=== PATIENT | male | born 1955 | race Caucasian/White ===

== ENCOUNTER → 2024-10-25 10:16 | Outpatient (REF) | payer OTHER, SELFPAY | LOC: RAD 10:16 | PROVIDERS: ATTENDING PHYSICIAN Physician Assistant Medical | DX: R53.83 Other fatigue (principal) | CPT/HCPCS: 71046 ==

== ENCOUNTER 2025-04-22 17:11 | Emergency (ER) | payer OTHER, SELFPAY ==
[2025-04-22 17:22] VITALS: BP 138/107
[2025-04-22 17:50] LABS: % Basophils 0.7 % (0-2); % Eosinophils 3.4 % (0-6); % Immature Granulocytes 0.3 % (0-0.5); % Lymphocytes 31.9 % (20.5-51.1); % Monocytes 10.5 % (1.7-9.3); % Neutrophils 53.2 % (42.2-75.2); Absolute Basophils 0.1 10^3/uL (0-0.2); Absolute Eosinophils 0.4 10^3/uL (0-0.7); Absolute Lymphocytes 3.5 10^3/uL (1.2-3.4); Absolute Monocytes 1.1 10^3/uL (0.1-0.6); Absolute Neutrophils 5.7 10^3/uL (1.4-6.5); Hematocrit 43.7 % (39.0-52.0); Mean Corp Hgb Conc. 34.3 g/dL (33.0-37.0); Mean Corpuscular Hgb 30.4 pg (27.0-31.0); Mean Corpuscular Volume 88.6 fL (80.0-94.0); Mean Platelet Volume 9.9 fL (7.4-10.4); Nucleated Red Blood Cells % 0 % (-); Platelet Count 190 10^3/uL (130-400); Red Blood Cell Count 4.93 10^6/uL (4.70-6.10); Red Cell Dist. Width 12.7 % (11.5-14.5); White Blood Cell Count 10.8 10^3/uL (4.8-10.8)
[2025-04-22 17:54] LABS: ALT (SGPT) 24 U/L (0-50); AST (SGOT) 27 U/L (17-59); Albumin 4.6 g/dl (3.5-5.0); Alkaline Phosphatase 38 U/L (38-126); Blood Urea Nitrogen 23 mg/dl (9-20); Calcium 9.5 mg/dl (8.4-10.2); Carbon Dioxide 28 mmol/L (22-30); Chloride 110 mmol/L (98-107); Glucose 103 mg/dl (70-99); Potassium 4.3 mmol/L (3.5-5.1); Sodium 145 mmol/L (135-145); Total Bilirubin 0.7 mg/dl (0.2-1.3); Total Protein 7.5 g/dl (6.3-8.2); eGFR > 60.00
[2025-04-22 18:25] LABS: TSH Reflex To Free T4 4.03 uIU/ml (0.47-4.68)
[2025-04-22 19:49] VITALS: BP 144/98
[2025-04-22 19:55] VITALS: BMI 32.5
[2025-04-22 20:00] VITALS: BP 136/81
--- NOTE | 2025-04-22 20:23 | ED.GENMED ---
History of Present Illness
General
Chief Complaint: Heart Rate Problem
Source: patient
Exam Limitations: none
Time Seen by Provider: 04/22/25 19:51
Nursing documentation reviewed up to this point in time: agreed with
History of Present Illness
History of Present Illness:
Patient to ED with report of HR of 147 at home. He states he took a random BP reading at home. BP was normal but HR was elevated. Brought self to ED for eval. States he has felt constipated and bloated for the past few weeks. Occassionally in
the AM he will feel chest tightness but this clear when he coughs. Denies any CP or SOB. No activity intolerance. COntinues to work without issues. He is unsure when his heart rate first elevatd. Hx of HTN, takes amlodipine daily.
Past History
Past History
ED Past Medical History: None
ED Past Surgical History: None
Social History
Tobacco: Non-smoker
Alcohol: Occasional
Drug: None
Personal:
Living: with family
Employment: Employed
Family History
Family History: Other (Noncontributory)
Review of Systems
Review of Systems
Allergies reviewed?: Yes
All Other Systems: ROS reviewed and negative except as documented in HPI and ROS
Constitutional: Reports no symptoms
EENT: Reports no symptoms
Respiratory: Reports no symptoms
Cardiac: Reports other (HR in 140's at home)
ABD/GI: Reports no symptoms
: Reports other (reports feeling bloated and constipated for the past few weeks.)
Musculoskeletal: Reports no symptoms
Skin: Reports no symptoms
Neurological: Reports no symptoms
Psychiatric: Reports no symptoms
Phy Exam
General Physical Exam
General Presentation: well appearing and no apparent distress
General age: appears stated age
General Skin: warm and dry
General Habitus: normal
General Mental: alert
Cardiovascular Exam
Cardiovascular Exam: no edema, no murmur and irregularly irregular
Pulmonary Exam
Pulmonary Exam: lungs clear and no respiratory distress
Gastrointestinal Exam
Gastrointestinal Exam: normal bowel sounds, non tender, soft, no organomegaly, non distended and no cva tenderness
Musculoskeletal Exam
Musculoskeletal Exam: full ROM and neuro vasc intact
Skin Exam
Skin Exam: normal color, warm/dry and no rash
Psychiatric Exam
Psychiatric Exam: normal mood/affect
Course
Orders/Labs/Results
Orders:
Orders
04/22/25 17:26
EKG [Electrocardiogram (*1)] Urgent
Reason for Study: Tachycardia
04/22/25 17:27
EKG- Treatment ONCE
04/22/25 17:33
Complete Blood Count/With Diff Urgent
Comprehensive Metabolic Panel Urgent
Magnesium Urgent
Comment: ADD ON
TSH Reflex To Free T4 Urgent
04/22/25 20:17
Add On- LAB Urgent
Tests Added?: magnesium, TSH reflex free T4
04/22/25 21:07
Apixaban [Eliquis] 5 mg PO NOW STA
Metoprolol [Lopressor] 25 mg PO NOW STA
04/22/25 21:36
Apixaban [Eliquis] 5 mg PO NOW STA
Metoprolol [Lopressor] 25 mg PO NOW STA
Abnormal Lab Results
04/22/25
17:33
Absolute Lymphs (auto) 3.5 H 10^3/uL
(1.2-3.4)
Absolute Monos (auto) 1.1 H 10^3/uL
(0.1-0.6)
Monocytes % 10.5 H %
(1.7-9.3)
Chloride 110 H mmol/L
(98-107)
BUN 23 H mg/dl
(9-20)
Glucose 103 H mg/dl
(70-99)
04/22/25 17:33
04/22/25 17:33
Vital Signs
Initial and Last Documented VS:
Initial Vital Signs
Temp Pulse Resp BP Pulse Ox
98.1 F 147 18 138/107 96
04/22/25 17:22 04/22/25 17:22 04/22/25 17:22 04/22/25 17:22 04/22/25 17:22
Last Documented Vital Signs
Temp Pulse Resp BP Pulse Ox
98.1 F 96 14 132/87 96
04/22/25 17:22 04/22/25 21:42 04/22/25 21:15 04/22/25 21:42 04/22/25 21:15
*Radiology
Radiology exam reviewed: radiology read reviewed
*Pulse Oximetry
Patient hypoxic: no
*EKG
Rhythm: a-fib
*Critical Care Note
Total Time (30-74mins, 75-104mins- exclusive of procedures): Not Applicable
Update Note
Update Note:
Patient to ED for eval of HR of 147 at home, found on random BP check at home He denies any cp/pressure, SOB, dizziness. He remains in afib here - first episode. Unknown when this started. HR controlled, 90's to low 100's. PUlse ox 98% RA.
WIll stop amlodipine, place on metoprolol 25mg bid, dose given in ED. Also started Eliquis in ED. He is discharged home and will follow up with cardiology. He was given s/s to return to ED and he is agreeable to plan.
ED Attending Note
-
Portions of this chart may have been created with voice recognition software.� Occasional wrong word or��sound alike� substitutions may have occurred due to the inherent limitations of voice recognition software.
Discharge Plan
Departure
Patient Disposition: Home (Routine Discharge)
Date of Disposition: 04/22/25
Time of Disposition: 21:22
Patient with high blood pressure during this ER visit?: No
Condition: Good
Covid-19: Not Applicable
Discharge Problem:
A-fib
Instructions: Atrial Fibrillation (DC), Chest Pain CBC Follow Up
Prescriptions:
New
Eliquis 5 mg tablet
5 mg PO BID Qty: 60 0RF
metoprolol succinate 25 mg tablet extended release 24 hr
25 mg PO BID Qty: 60 0RF
No Action
aspirin 81 MG tablet,delayed release (DR/EC)
81 mg PO DAILY
multivitamin with folic acid [Tab-A-Guerda] 1 TABLET tablet
1 tab PO DAILY
Referrals:
JIGNESH ORTEGA [Other]
Maximus Gamez MD [Active] - (Call Thursday to schedule your appointment.)
Activity Restrictions/Additional Instructions:
Return to the emergency department immediately for chest pain/pressure, any difficulty breathing, rapid heart rate, or for any futher concerns.
Interventions
Interventions:
*Risk Screen - Suicide Last Done: 04/22/25 17:22
*General Assessment Last Done: 04/22/25 17:22
*Neglect/Abuse Screening Last Done: 04/22/25 17:22
*ED- Fall Risk Assessment Last Done: 04/22/25 21:43
*ED COVID-19 Vaccine History Last Done: 04/22/25 21:43
*Nursing Disposition Last Done: 04/22/25 21:43
ED- Cardiac Assessment Last Done: 04/22/25 20:00
ED- Pulmonary Assessment Last Done: 04/22/25 20:00
Discharge Date and Time
Discharge Date/Time: 04/22/25 21:44
Print Language: [place] K[place]
[2025-04-22 20:46] LABS: Magnesium 2.1 mg/dl (1.6-2.3)
[2025-04-22 21:00] VITALS: BP 121/89
[2025-04-22] MEDS: ELIQUIS 5 MG PO ×2 (21:30→21:42)
[2025-04-22] MEDS: LOPRESSOR 25 MG PO ×2 (21:31→21:42)
== END 2025-04-22 21:44 | disposition home or self-care (01) ==
LOC: EMR 17:11
PROVIDERS: Emergency Medicine; EMERGENCY PHYSICIAN Student in an Organized Health Care Education/Training Program
DX: I48.91 Unspecified atrial fibrillation (principal); I10 Essential (primary) hypertension
CPT/HCPCS: 99283; 80053; 83735; 84443; 85025; 93005

== ENCOUNTER 2025-04-29 21:43 | Emergency (ER) | payer OTHER, SELFPAY ==
[2025-04-29 21:57] VITALS: BP 148/99
[2025-04-29 22:05] VITALS: BP 140/82
--- NOTE | 2025-04-29 22:30 | ED.GENMED ---
History of Present Illness
General
Chief Complaint: Heart Rate Problem
Source: patient
Exam Limitations: none
Time Seen by Provider: 04/29/25 22:03
Nursing documentation reviewed up to this point in time: agreed with
History of Present Illness
History of Present Illness:
The patient is a very pleasant 70-year-old man with a recent diagnosis of atrial fibrillation about a week ago. Patient reports he has been taking Eliquis for 1 week. Patient reports that he decided to check his heart rate out of curiosity this
evening before bedtime and the rate was in the 140s 150s. Patient reports he was surprised to see the heart rate because he feels completely fine. He denies lightheadedness, dizziness, chest pain or shortness of breath. Patient has no other
complaints. He denies swelling in the legs.
Past History
Past History
ED Past Medical History: Arrthythmia
ED Past Surgical History: Other
Social History
Tobacco: Non-smoker
Alcohol: Occasional
Drug: None
Personal:
Living: with family
Employment: Employed
Family History
Family History: Other (Noncontributory)
Review of Systems
Review of Systems
Allergies reviewed?: Yes
All Other Systems: ROS reviewed and negative except as documented in HPI and ROS
Constitutional: Reports no symptoms
EENT: Reports no symptoms
Respiratory: Reports no symptoms
Cardiac: Reports no symptoms
ABD/GI: Reports no symptoms
: Reports no symptoms
Musculoskeletal: Reports no symptoms
Skin: Reports no symptoms
Neurological: Reports no symptoms
Endocrine: Reports no symptoms
Hematologic/Lymphatic: Reports no symptoms
Psychiatric: Reports no symptoms
Phy Exam
Physical Exam
Physical Exam:
Physical Exam
General: no apparent distress, not acutely ill. Looks extremely well and comfortable, smiling conversational
Neck: supple. no meningeal signs. normal psoterior pharynx
Heart: Tachycardic, irregular
Lungs: no acute respiratory distress. clear bilaterally
Abdomen: normal bowel sounds. not tender. no CVAT
Neuro: alert and oriented. no focal neurological deficits
Skin: no rash
Psychiatric: well kept. interactive and cooperative
Extremities: no edema. no calf tenderness. negative homans. good distal pulses
Course
Orders/Labs/Results
Orders:
Orders
04/29/25 21:44
ECG [Electrocardiogram (*1)] Urgent
Reason for Study: Atrial Fibrillation
EKG- Treatment ONCE
04/29/25 22:29
Diltiazem HCl [Cardizem] 10 mg IV NOW STA
04/29/25 22:30
Diltiazem 125 mg/125 ml Nss [Cardizem] 125 mg in 125 ml IV PER PROTOCOL
Initial dose in mg/hr, then titrate:: 5
Titrate to keep:: Heart rate 80-100 bpm
Titrate by mg/hr:: 5 mg/hr
Frequency of titrations (minutes):: 15
Maximum dose in mg/hr:: 15
04/29/25 22:38
Complete Blood Count/With Diff Urgent
Comprehensive Metabolic Panel Urgent
04/29/25 23:17
Metoprolol [Lopressor] 50 mg PO NOW STA
04/29/25 23:48
Metoprolol [Lopressor] 25 mg .ROUTE .STK-MED ONE
04/29/25 23:49
Metoprolol [Lopressor] 25 mg PO NOW STA
Abnormal Lab Results
04/29/25
22:38
Abs Immat Gran (auto) 0.1 H 10^3/uL
(0-0.05)
Absolute Monos (auto) 1.1 H 10^3/uL
(0.1-0.6)
Monocytes % 11.0 H %
(1.7-9.3)
Sodium 146 H mmol/L
(135-145)
Chloride 110 H mmol/L
(98-107)
BUN 22 H mg/dl
(9-20)
Glucose 113 H mg/dl
(70-99)
04/29/25 22:38
04/29/25 22:38
Vital Signs
Initial and Last Documented VS:
Initial Vital Signs
Temp Pulse Resp BP Pulse Ox
98 F 151 18 148/99 97
04/29/25 21:57 04/29/25 21:57 04/29/25 21:57 04/29/25 21:57 04/29/25 21:57
Last Documented Vital Signs
Temp Pulse Resp BP Pulse Ox
98 F 95 18 112/69 95
04/29/25 21:57 04/29/25 23:59 04/29/25 23:56 04/29/25 23:59 04/29/25 23:56
MDM/Problems Addressed
Differential Diagnosis Includes:
Atrial flutter with RVR, A-fib with RVR, sinus tachycardia
MDM/Problems Addressed:
Patient presents with A-fib with acute rapid heart rate
Chronic conditions affecting care:
Atrial fibrillation
Acute Exacerbation and/or Progression of Chronic Illness:
Patient likely has acute exacerbation of chronic A-fib
Acute Exacerbation and/or Progression of Chronic Illness: Arrhythmia
*Pulse Oximetry
Patient hypoxic: no
*EKG
Interpreted by ED Provider?: Yes
Interpretation: abnormal
Comparison EKG: no changes
Rate: normal
Rhythm: a-fib
[place]: left axis deviation
Interval: normal interval
QRS Pattern: normal QRS
Ischemia: non-specific ST changes
*Electrical Worker Interpretation
Rate: tachycardiac
Interpretation: abnormal
Rhythm: a-fib
*Critical Care Note
Total Time (30-74mins, 75-104mins- exclusive of procedures): Not Applicable
Data Reviewed
Review of Other/Old Records Reveals: Radiology Studies (September 2024 patient had a normal-appearing chest x-ray)
Source: patient
Patient Management
Social determinants of health affecting care: Living situation and Strong social support
Escalation/DeEscalation of care consider admission/obs:
Patient remains asymptomatic with no complaints of chest pain, dizziness, or shortness of breath. Case discussed with Dr. Pedro who told me that cardioversion is not an option due to patient being on Eliquis for only 1 week. Given patient is
completely asymptomatic and feels better, decision made to increase patient's metoprolol from 25 mg twice a day to 50 mg twice a day as recommended by Dr. Pedro. Patient is comfortable with this plan. Clinically there is no sign of CHF. He
feels extremely well and comfortable.
ED Attending Note
-
Portions of this chart may have been created with voice recognition software.� Occasional wrong word or��sound alike� substitutions may have occurred due to the inherent limitations of voice recognition software.
Discharge Plan
Departure
Patient Disposition: Home (Routine Discharge)
Date of Disposition: 04/29/25
Time of Disposition: 23:37
Patient with high blood pressure during this ER visit?: Yes
Condition: Good
Covid-19: Not Applicable
Discharge Problem:
Atrial fibrillation with rapid ventricular response
Instructions: Atrial Fibrillation (DC), BLOOD PRESSURE
Prescriptions:
No Action
aspirin 81 MG tablet,delayed release (DR/EC)
81 mg PO DAILY
multivitamin with folic acid [Tab-A-Guerda] 1 TABLET tablet
1 tab PO DAILY
Eliquis 5 mg tablet
5 mg PO BID Qty: 60 0RF
metoprolol succinate 25 mg tablet extended release 24 hr
25 mg PO BID Qty: 60 0RF
Referrals:
Micheal Cortez MD [Family Provider, Internal Medicine]
Activity Restrictions/Additional Instructions:
Increase your metoprolol dose to 50 milligrams twice a day
Interventions
Interventions:
*Risk Screen - Suicide Last Done: 04/29/25 21:48
*General Assessment Last Done: 04/29/25 22:50
*Neglect/Abuse Screening Last Done: 04/29/25 21:48
*ED- Fall Risk Assessment Last Done: 04/29/25 22:50
*Nursing Disposition Last Done: 04/30/25 00:07
ED- Cardiac Assessment Last Done: 04/29/25 22:48
ED- Pulmonary Assessment Last Done: 04/29/25 22:48
Discharge Date and Time
Discharge Date/Time: 04/30/25 00:08
Print Language: BELARUSIAN
[2025-04-29] MEDS: CARDIZEM 10 MG IV (22:42)
[2025-04-29 22:43] VITALS: BMI 31.3
[2025-04-29] MEDS: CARDIZEM 125 IV (22:43)
[2025-04-29 22:44] LABS: % Basophils 0.8 % (0-2); % Eosinophils 4.1 % (0-6); % Immature Granulocytes 0.5 % (0-0.5); % Neutrophils 56.6 % (42.2-75.2); Absolute Basophils 0.1 10^3/uL (0-0.2); Absolute Eosinophils 0.4 10^3/uL (0-0.7); Absolute Immature Granulocytes 0.1 10^3/uL (0-0.05); Absolute Lymphocytes 2.6 10^3/uL (1.2-3.4); Absolute Monocytes 1.1 10^3/uL (0.1-0.6); Absolute Neutrophils 5.4 10^3/uL (1.4-6.5); Hematocrit 43.4 % (39.0-52.0); Mean Corp Hgb Conc. 34.6 g/dL (33.0-37.0); Mean Corpuscular Hgb 30.6 pg (27.0-31.0); Mean Corpuscular Volume 88.6 fL (80.0-94.0); Mean Platelet Volume 9.8 fL (7.4-10.4); Nucleated Red Blood Cells % 0 % (-); Platelet Count 180 10^3/uL (130-400); Red Cell Dist. Width 12.5 % (11.5-14.5); White Blood Cell Count 9.6 10^3/uL (4.8-10.8)
[2025-04-29 23:00] VITALS: BP 121/75
[2025-04-29 23:01] LABS: ALT (SGPT) 25 U/L (0-50); AST (SGOT) 26 U/L (17-59); Albumin 4.6 g/dl (3.5-5.0); Alkaline Phosphatase 42 U/L (38-126); Blood Urea Nitrogen 22 mg/dl (9-20); Calcium 9.3 mg/dl (8.4-10.2); Carbon Dioxide 27 mmol/L (22-30); Chloride 110 mmol/L (98-107); Estimated Creatinine Clearance > 125 ml/min; Glucose 113 mg/dl (70-99); Potassium 4.3 mmol/L (3.5-5.1); Sodium 146 mmol/L (135-145); Total Bilirubin 0.7 mg/dl (0.2-1.3); Total Protein 7.3 g/dl (6.3-8.2); eGFR > 60.00
[2025-04-29 23:56] VITALS: BP 112/69
[2025-04-29] MEDS: LOPRESSOR 25 MG PO (23:59)
== END 2025-04-30 00:08 | disposition home or self-care (01) ==
LOC: EMR 21:43
PROVIDERS: EMERGENCY PHYSICIAN Emergency Medicine; FAMILY PHYSICIAN Internal Medicine
DX: I48.91 Unspecified atrial fibrillation (principal); Z79.01 Long term (current) use of anticoagulants; Z79.899 Other long term (current) drug therapy
CPT/HCPCS: 99283; 96374; 96376; 80053; 85025; 93005

== ENCOUNTER → 2025-05-12 12:47 | Outpatient (REF) | payer OTHER, SELFPAY ==
--- NOTE | 2025-05-12 13:51 | CARDSERVDEF ---
Echocardiogram with Definity completed after protocol screening completed. Allergies verified.
Patent IV site: Left antecubital 22 G PC
IV site flushed with 0.9% NaCl pre and post administration.
Diluted bolus method utilized to enhance visualization of ventricular alegria.
Total volume given: _3___ mL
Patient tolerated all procedures well without complications.
Heplock D/C ed at 1350, site clear, no redness, no edema. pressure held for few minutes as pt on anticoagulants. No bleeding, 2x2 applied and taped. Pt offers no complaints. .
== END ==
LOC: RCS 12:47
PROVIDERS: ATTENDING PHYSICIAN Internal Medicine; FAMILY PHYSICIAN Internal Medicine
DX: I48.91 Unspecified atrial fibrillation (principal); Z79.01 Long term (current) use of anticoagulants; I10 Essential (primary) hypertension
CPT/HCPCS: 93306; Q9957

== ENCOUNTER → 2025-05-16 06:47 | Outpatient (REF) | payer OTHER, SELFPAY | LOC: RCS 06:47 | PROVIDERS: ATTENDING PHYSICIAN Internal Medicine; FAMILY PHYSICIAN Internal Medicine | DX: I48.91 Unspecified atrial fibrillation (principal); Z79.01 Long term (current) use of anticoagulants; I10 Essential (primary) hypertension | CPT/HCPCS: 78452; 93017; A9500; J2785 ==

== ENCOUNTER 2025-05-31 08:54 | Day surgery (SDC) | payer OTHER, SELFPAY ==
[2025-05-26 13:01] VITALS: BMI 31.9
== END 2025-05-31 11:46 | disposition home or self-care (01) ==
LOC: CATH 08:54
PROVIDERS: ATTENDING PHYSICIAN Internal Medicine Cardiovascular Disease; FAMILY PHYSICIAN Internal Medicine; REFERRING PHYSICIAN Internal Medicine
DX: I48.91 Unspecified atrial fibrillation (principal); Z53.09 Procedure and treatment not carried out because of other contraindication; Z86.73 Personal history of transient ischemic attack (TIA), and cerebral infarction without residual deficits; I10 Essential (primary) hypertension; E78.5 Hyperlipidemia, unspecified
CPT/HCPCS: 93005

== ENCOUNTER 2025-07-27 05:55 | Day surgery (SDC) | payer OTHER, SELFPAY ==
[2025-07-12 10:25] VITALS: BMI 34.9
[2025-07-12 11:00] LABS: Hematocrit 45.3 % (39.0-52.0); Hemoglobin 15.1 g/dL (13.0-18.0); Mean Corp Hgb Conc. 33.3 g/dL (33.0-37.0); Mean Corpuscular Volume 89.2 fL (80.0-94.0); Nucleated Red Blood Cells % 0 % (-); Platelet Count 208 10^3/uL (130-400); Red Cell Dist. Width 12.2 % (11.5-14.5)
[2025-07-12 11:14] LABS: ALT (SGPT) 21 U/L (0-50); AST (SGOT) 26 U/L (17-59); Albumin 4.6 g/dl (3.5-5.0); Alkaline Phosphatase 37 U/L (38-126); Blood Urea Nitrogen 12 mg/dl (9-20); Calcium 8.8 mg/dl (8.4-10.2); Carbon Dioxide 29 mmol/L (22-30); Chloride 106 mmol/L (98-107); Estimated Creatinine Clearance > 125 ml/min; Glucose 113 mg/dl (70-99); Potassium 4.7 mmol/L (3.5-5.1); Sodium 142 mmol/L (135-145); Total Protein 7.4 g/dl (6.3-8.2); eGFR > 60.00
[2025-07-27] VITALS (11 sets, daily range): BP systolic 90–141; BP diastolic 69–103; BMI 34.4
[2025-07-27 08:42] LABS: ACT-LR - POC 363 Seconds (116-155)
[2025-07-27 09:04] LABS: ACT-LR - POC 353 Seconds (116-155)
[2025-07-27 09:30] LABS: ACT-LR - POC 313 Seconds (116-155)
[2025-07-27 09:50] LABS: ACT-LR - POC 385 Seconds (116-155)
--- NOTE | 2025-07-27 10:06 | ITS.CL.ABL ---
Handkerchief Cutter - Ablation
Ablation
Procedure Report:
AFIB ablation:
Mr. Reeder is a very pleasant 70 yr old gentleman with symptomatic persistent AF and atrial flutters, is recommended for atrial fibrillation ablation.
Date of the Procedure:
07/27/2025
Indications:
Persistent atrial fibrillation / atrial flutter
Pre-Operative Diagnosis:
Persistent atrial fibrillation / atrial flutter
Post-Operative Diagnosis:
Persistent atrial fibrillation / atrial flutter
Procedure Performed:
Atrial fibrillation ablation with Pulsed-Field approach for pulmonary vein isolation
Roof dependent atrial flutter ablation
Posterior wall isolation
Mitral flutter with mitral isthmus ablation
Performing Physician:
Ab Vega MD
Assistants:
EP staff
Anesthesia:
See anesthesia records
Detailed Description of the Procedure:
Written informed consent was obtained from the patient after a full explanation of the risks and benefits of the procedure including the risks of sedation and anesthesia.
The patient was brought to the electrophysiology laboratory in stable condition in fasting state. Continuous electrocardiographic and hemodynamic monitoring was initiated.
The initial rhythm was atrial fibrillation.
The procedure site was meticulously prepared with surgical scrub and allowed to dry with no pooling. Sterile draping was applied to cover the procedure site. The image intensifier was draped with sterile bag and positioned over the patient. After
infusion of local anesthetic, vascular access was obtained under ultrasound guidance and sheaths were placed over guide wire as detailed below.
Sheath and Catheter Placement:
The following catheters / sheaths were placed
Sheaths:
��������� 17Fr steerable sheath ([employer]rive�, [employer]) in right femoral
��������� 9Fr in right femoral vein
��������� 7Fr in right femoral vein
Catheters:
��������� ERIKA HD Grid mapping catheter � at locations of RA, LA
��������� Farawave� PFA catheter
��������� ICE catheter -AcuNav - at locations of RA, SVC, and RV.
��������� Decapolar Bard catheter in RA and CS
Intracardiac ECHO:
An 8-Swiss AcuNav intracardiac ECHO (ICE) probe was advanced through the 9-Swiss sheath in the right femoral vein into the right atrium under fluoroscopic and ICE ultrasound image guidance and a baseline ECHO study was performed. The left atrial
size was dilated. There was moderate tricuspid regurgitation. The aortic valve was grossly normal. There was normal left ventricular systolic functions. There is trace pericardial effusion. All the four veins were identified and has flow identified.
There was good flow noted in the TONYA. The LA was severely dilated.
During the procedure, ICE was used for monitoring of complications, guidance of trans-septal puncture, monitor the catheter position and tracking ablation lesions. No change in the pericardial space noted throughout the procedure.
Trans-septal Puncture:
Heparin was initiated and infused to maintain appropriate ACT. A pigtail guidewire was advanced through the 8-Swiss sheath in the right femoral vein into the superior vena cava under fluoroscopic and ICE guidance. The 9-Swiss sheath was exchanged
for a Faradrive sheath which was advanced into the superior vena cava. A transseptal VersaCross RF pigtail via Faradrive connect system was utilized to perform the trans-septal puncture. The apparatus was withdrawn until it was in contact with the
fossa ovalis. The position was adjusted based on fluoroscopy and ultrasound images from ICE. Under fluoroscopic, hemodynamic and ICE ultrasound guidance, left atrium was cannulated by applying RF energy. Once atrial septum was cannulated, the
pigtail wire was advanced into the left atrium. The guide wire was advanced into the left superior pulmonary vein. Both the sheath and the dilator was advanced into the left atrium. The dilator with the needle was withdrawn. Blood was aspirated from
the Faradrive sheath and arterial blood confirmed. The sheath was flushed. Saline injection noted into the left atrium on ICE. The mapping catheter was advanced in the sheath into the left pulmonary vein. Left atrial pressure was measured.
3D Electroanatomic Mapping:
Using the HD Grid catheter advanced through sheath into the left atrium, an electroanatomic map (EAM) of the left atrium was created using raksul mapping system. The map was used for localization of catheter position and tacking of ablation
lesions.
The EAM of the left atrium showed 6 pulmonary veins (2 left and 4 right) with all 6 veins electrically connected to the body the LA. It showed scattered areas of low voltage on the posterior and anterior wall of the LA. The LA was dilated in size.
Following the EAM, preparation were made for ablation.
Ablation:
Ablation # 1: Pulmonary vein Isolation:
Glycopyrrolate 0.2 mg was given prior to the placement of ablation. Using Farawave pulsed field ablation system, pulmonary vein isolation was achieved. First the ablation catheter was placed in the LIPV and ostial ablation lesions were performed in
an �[place]� formation of the Farawave configuration and a counter clock hernández rotation was done and ablated to cover the area between the electrodes. Then the catheter was placed on the antral location in �[place]lower� configuration and multiple ablation
lesions were placed circumferentially on the antrum of the vein.
In the similar fashion, the LSPV were isolated.
Then the catheter was moved to right sided veins. The ostial and antral ablations were placed as noted above.
Patient remained in atrial fibrillation.
Ablation #2: Roof dependent flutter ablation
Patient had hx of atrial flutter and the rhythm was switching from AF to FL to AF during the case. The flutter was coming from the LA. The entrainment could not be done due to degeneration into atrial fibrillation.
This was consistent with roof dependent atrial flutter brooks with extensive scar on the posterior wall and channels conduction on the posterior wall.
Using the pulsed field ablation catheter, the catheter was placed between left superior pulmonary vein and right severe pulmonary vein with series of overlapping ablation lesions placed.
Ablation # 3: Posterior wall isolation:
Using the pulsed field ablation catheter, the catheter was placed on the posterior wall and moved around the posterior wall to have adequate contact and ablations were placed isolating the posterior wall.
Ablation #4: Mitral flutter ablation
Patient had severely enlarged LA with large areas of the scar on anterior and posterior wall. With PWI, this made it a perfect substrate for mitral flutter. Decision was made to create a line of block at the mitral isthmus to avoid mitral isthmus
dependent flutters.
A series of ablations were placed on the mitral isthmus creating the left inferior antrum to the lateral mitral annulus.
Cardioversion:
Once the PV isolation was achieved, decision was made to proceed with cardioversion. A 200 J biphasic shock was applied on the tonja posterior Zoll patches and sinus rhythm was achieved. No significant pause noted.
EPS and Confirmation of the PVI and bidirectional block:
Following achievement of entrance block at the pulmonary veins, pacing from the HD catheter in each of the four veins at 10 milliamps for 2 milliseconds showed entrance and exit block. All PVI were rechecked at the end of the case and remained
isolated. Entrance and exit block were demonstrated in all veins.
Post ablation Electroanatomic mapping:
Once ablation was completed, the EAM of the LA was done again in sinus rhythm with excellent demarcation of LA myocardium and isolated antral tissue.
The TONYA had healthy signals and was not isolated. The CS was paced and the block across the mitral isthmus demonstrated.
Procedure End
ICE study was done again that showed no epicardial accumulation. No complications noted.
Following the completion of the EP study, catheters were removed. Protamine 40 mg was given at the end of the procedure and ACT was checked repeatedly. The sheaths were removed and hemostasis achieved with �Figure of 8� and manual compression after
acceptable ACT is achieved.
Left atrial Pressure:
Pre-Mean LA pressure was 8mmHg
Post-Mean LA pressure was 10mmHg
Post -Mean RA pressure was 8 mmHg.
Estimated Blood loss:
<10 cc
Specimens Removed:
None.
Implants / Devices:
None
Urine output:
None
Packs / Drains/ Tubes:
None
Instrument / Sponge Count Correct:
Yes
Complications of the Procedure:
None
Condition of Patient at Time of Transfer:
Hemodynamically stable with no neurological or vascular compromise.
Summary:
Successful atrial fibrillation ablation with Pulsed Field approach for pulmonary vein isolation, roof dependent flutter ablation, posterior wall isolation and Mitral isthmus ablation.
Figures from the Procedure:
Figure 1: The electroanatomic mapping (EAM) of the left atrium with bipolar voltage (purple indicates normal electrical activity with martin as no myocardial muscle electric activity indicating a line of block or scar.
--- NOTE | 2025-07-27 15:08 | W.PN.UPDATE ---
Update Note
Progress Note Update
70 yo WM s/p PVI (same day). He denies cp, sob, sindhu diet, voiding, R fem site c/d/i no HT, EKG SR. He will resume Dabigatran tonight and continue metoprolol. Activity restrictions reviewed. He will f/u NPN in 2 weeks. He is for d/c home after 3p if
groin remains stable.
== END 2025-07-27 15:00 | disposition home or self-care (01) ==
LOC: CATH 05:55
PROVIDERS: ATTENDING PHYSICIAN Internal Medicine Cardiovascular Disease; OTHER PHYSICIAN Internal Medicine
DX: I48.19 Other persistent atrial fibrillation (principal); I48.92 Unspecified atrial flutter; Z79.01 Long term (current) use of anticoagulants; I10 Essential (primary) hypertension; Z79.899 Other long term (current) drug therapy; E78.00 Pure hypercholesterolemia, unspecified; I49.8 Other specified cardiac arrhythmias
CPT/HCPCS: C1732; C1894; C1730; C1769; C1892; C1759; 36415; 80053; 85025; 85347; 86850; 86900; 86901; 93005; 93655; 93656; 93657; C1733; C1766